=== PATIENT | male | born 1950 | race Caucasian/White ===

== ENCOUNTER → 2019-04-17 14:48 | Outpatient (CLI) | payer OTHER, SELFPAY ==
--- NOTE | 2019-04-17 | DI.RAD.S_ITS ---
PROCEDURE: XR HAND RT MIN 3V INDICATIONS: BILATERAL HAND PAIN TECHNIQUE: 3 views of the hand(s) acquired. COMPARISON: None. FINDINGS: Bones: No fractures or dislocations. Carpal bones are normally aligned. No suspicious bony lesions. Soft tissues: No suspicious soft tissue calcifications. IMPRESSION: Normal for age, source of current and pain symptoms is not seen. Dictated by: Jack Reyes M.D. on 04/17/2019 at 16:06 Approved by: Jack Reyes M.D. on 04/17/2019 at 16:07
--- NOTE | 2019-04-17 | DI.RAD.S_ITS ---
PROCEDURE: XR HAND LT MIN 3V INDICATIONS: BILATERAL HAND PAIN TECHNIQUE: 3 views of the hand(s) acquired. COMPARISON: None. FINDINGS: Bones: No fractures or dislocations. Carpal bones are normally aligned. No suspicious bony lesions. Soft tissues: No suspicious soft tissue calcifications. IMPRESSION: Normal for age except for mild degenerative osteoarthritis, source of current persistent hand pain symptoms is not seen. Dictated by: Jack Reyes M.D. on 04/17/2019 at 16:07 Approved by: Jack Reyes M.D. on 04/17/2019 at 16:08
== END ==
PROVIDERS: PCP Family Medicine; Visit Provider Family Medicine
DX: M79.641 Pain in right hand (principal); M79.642 Pain in left hand; M19.042 Primary osteoarthritis, left hand
CPT/HCPCS: 73130

== ENCOUNTER 2019-08-25 11:52 | Day surgery (SDC) | payer OTHER, SELFPAY ==
[2019-08-25] VITALS (8 sets, daily range): BP systolic 98–113; BP diastolic 67–78; PULSE 53–67; RESP 7–16; TEMP 35.9–36.3; O2SAT 95–98; BMI 25.6
--- NOTE | 2019-08-25 05:51 | P.HP_ITS ---
History of Present Illness History of Present Illness Date Patient Seen: 08/25/19 Time Patient Seen: 12:45 Chief complaint: [id number] Narrative: 69 Years Old Male comes in today consideration of a screening colonoscopy. He has had 2 previous colonoscopies. The first colonoscopy in approximately 1997 revealed colon polyps, records unavailable at time of dictation. Second colonoscopy in 2002 was within normal limits. In the last few weeks, he has had one episode of bright red bleeding per rectum with dripping blood into the stool. He does have hemorrhoids and lactose intolerance and did have accidental dairy ingestion prior to the bleeding. Denies any constipation, diarrhea, change in stool caliber size, anemia, nausea, vomiting, or abdominal pain. There's been no family history of colon cancer or colon polyps. Overall health issues have been stable, including no major cardiac events for at least 6 weeks. Current Medications (verified): 1) Turmeric 450 Mg Oral Capsule (Turmeric) .... use as directed per bottle instructions 2) Vitamin E 400 Unit Oral Capsule (Vitamin E) .... Take one by mouth every day 3) Iron 240 (27 Fe) Mg Oral Tablet (Ferrous Gluconate) .... Take one by mouth every day 4) Vitamin C 1000 Mg Oral Tablet (Ascorbic Acid) .... Take one twice daily. 5) Vitamin D3 1000 Unit Oral Tablet (Cholecalciferol) .... Take one by mouth every day 6) B-12 1000 Mcg Oral Capsule (Cyanocobalamin) .... Take one daily 7) Lactaid 3000 Unit Oral Tablet (Lactase) .... Take one by mouth every day as needed 8) Probiotic Acidophilus Oral Tablet (Lactobacillus) .... Take one by mouth every day 9) Lutein 10 Mg Oral Tablet (Lutein) .... Take one daily 10) Glucosamine Chondroitin Complx 500-250 Mg Oral Capsule (Glucosamine- Chondroitin) .... Take one daily 11) Saw [place] 160 Mg Oral Capsule (Saw [place] (Serenoa Repens)) .... Take one daily. 12) Alpha-Lipoic Acid 100 Mg Oral Capsule (Alpha-Lipoic Acid) .... Take one by mouth every day 13) Ginkoba 40 Mg Oral Tablet (Ginkgo Biloba) .... Take one by mouth every day 14) Melatonin 5 Mg Oral Tablet (Melatonin) .... one tablet every evening to improve sleep Allergies (verified): No Known Drug Allergies 1) * Grass (Moderate) Past History Reviewed: Past medical, surgical, family and social histories (including risk factors) reviewed and attested, and no changes required Past Medical History: Arthritis Asthma Hay fever Sciatica Reflux STD Colon polyp Hyperlipidemia Past Surgical History: Cataract bilateral 01/2017 Lipoma 2004 Vasectomy 1994 Colonoscopy 2002?, reportedly normal Colonoscopy, 1997?, colon polyps Family History: Reviewed history from 03/18/2018 and no changes required: Father: Prostate Cancer Mother: Diabetes Siblings: Family Hx Diabetes Family Hx Prostate Cancer Social History: Reviewed history from 02/18/2017 and no changes required: Marital Status: Children: Ana Simmons 1981 and Artemio Scott 9[birth year] 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 Head: Head normocephalic/atraumatic. Neck: Neck soft and supple, no lymphadenopathy. Lungs: Clear to auscultation bilaterally, no wheezes, rhonchi or rales. Heart: Normal S1 and S2 with regular rate and rhythm, no audible murmurs, rubs or gallops. Abdomen: Soft, non-tender, non-distended, no organomegaly. Positive bowel sounds. Extremities: No clubbing, cyanosis, or edema. Neurologic: Cranial nerves II through XII grossly intact, no focal deficits. Skin: no concerning leisions. Psych: Alert and oriented x 3. Assessment & Plan Assessment & Plan narrative: Problem # 1: Hematochezia (ICD-578.1) (ICD10- K92.1) 1. Colonoscopy The nature and character of the procedure as well as anticipated results were discussed. The possibility of not completing the procedure was also discussed. Possible complications including aspiration pneumonia, bleeding, perforation and reaction to medications either for sedation or preparation and missed lesions were discussed. Questions were answered and proceeding to the colonoscopy was elected. Informed consent signed. I sincerely appreciate the referral allowing me to participate in this patient's care. Please contact me with any questions or concerns. Problem # 2: Colon polyps (ICD-211.3) (ROE12-W33.5) Please see #1. Problem # 3: COLON CANCER SCREENING (ICD-V76.51) (DIH21-O36.11) Please see #1. Time Spent With Patient Time with patient: less than 15 minutes
--- NOTE | 2019-08-25 05:56 | PM.OP.ENDO ---
Operative Date/Time/Diagnoses Date of procedure: 08/25/19 Time of procedure: 13:09 Pre-op diagnosis: 1. Hematochezia 2. History of colon polyps 3. Screening for colon cancer Post-op diagnosis: other (Normal colonoscopy) Procedure & Clinicians Study performed: Colonoscopy Same procedure as scheduled: Yes Indications: 1. Hematochezia 2. History of colon polyps 3. Screening for colon cancer Surgeon: Marilin Magana Procedure Notes SCOAP/Timeout: 13:09 Procedure in detail: ENDOSCOPIST: Marilin Magana MD Sedation RN: Linda Orozco RN Sedation start time: 13:10 Sedation end time: 13:22 PROCEDURE: Colonoscopy INDICATIONS: 1. Hematochezia 2. History of colon polyps 3. Screening for colon cancer MEDICATION: Levsin 0.125 mg sublingual, incremental doses of Versed and fentanyl until appropriate level sedation achieved. ASA CLASS: 2 CECAL WITHDRAWAL TIME: 6 minutes COMPLICATIONS: None. EXTENT OF PROCEDURE: Cecum. QUALITY OF PREP: Good with portions of liquid stool. PROCEDURE: Prior to insertion of the colonoscope, a digital rectal examination was accomplished with circumferential palpation of the distal rectal mucosa without significant findings being noted. The high-definition colonoscope was passed into the rectum in the usual fashion and advanced over to the cecum without difficulty. The ileocecal valve, appendiceal stoma, and medial wall all could be inspected and no abnormalities were seen. ASCENDING COLON: As the colonoscope was withdrawn, care was taken to expose and inspect the haustral folds and no abnormalities were seen. HEPATIC FLEXURE: Normal no polyps, diverticula or other abnormalities. TRANSVERSE COLON: Normal no polyps, diverticula or other abnormalities. DESCENDING COLON: Normal no polyps, diverticula or other abnormalities. SIGMOID COLON: Normal no polyps, diverticula or other abnormalities. RECTUM: Normal. J maneuver was produced. There was no significant perianal disease. The J maneuver was broken. The remainder of the rectum was inspected and there was no external hemorrhoid disease. The scope was withdrawn. IMPRESSION: 1. Normal colonoscopy 2. No endoscopic evidence for hematochezia, suspect likely secondary to lactose intake. PLAN: 1. Secondary to history of colon polyps, repeat colonoscopy in 5-10 years. The possibility of a missed lesion including a malignancy has been discussed with the patient previously. Potential alarm symptoms have been discussed and should be reported immediately. Scope withdrawal time: 6 minutes Sedation minutes: 12 Specimen(s): none sent Complications: none Impression: As above Post-procedure Recommendations: Colonscopy in 5 years Follow up: as needed Disposition: PACU
[2019-08-25] MEDS: SODIUM CHLORIDE 0.9% 1,000 ML 200 ML IV (12:24)
[2019-08-25] MEDS: HYOSCYAMINE 0.125 MG TABLET PO (12:27)
[2019-08-25] MEDS: fentaNYL 250 MCG/5 ML INJ IV (13:32)
[2019-08-25] MEDS: MIDAZOLAM 5 MG/5 ML VIAL IV (13:32)
== END 2019-08-25 15:03 | disposition home or self-care (01) ==
PROVIDERS: Family Provider Family Medicine; PCP Family Medicine; Visit Provider Student in an Organized Health Care Education/Training Program
PROC: 0DJD8ZZ Inspection of Lower Intestinal Tract, Via Natural or Artificial Opening Endoscopic (ICD-10-PCS; CPT 45378; principal; 2019-08-25 13:00)
DX: K92.1 Melena (principal); Z86.010 Personal history of colon polyps; K64.9 Unspecified hemorrhoids; E73.9 Lactose intolerance, unspecified
CPT/HCPCS: 45378; J2250; J3010

== ENCOUNTER → 2022-12-09 17:33 | Outpatient (CLI) | payer OTHER, SELFPAY ==
--- NOTE | 2022-12-09 17:39 | DI.RAD.S_ITS ---
PROCEDURE: XR FOREARM RT 2V INDICATIONS: Forearm injury TECHNIQUE: 2 views of the forearm were acquired. COMPARISON: None. FINDINGS: Bones: No fractures or dislocations. No suspicious bony lesions. Proximal olecranon enthesophyte formation near triceps tendon insertion is seen. Soft tissues: No suspicious soft tissue calcifications or masses. IMPRESSION: No forearm fracture or dislocation. No gross soft tissue abnormality. Dictated by: Harman Vasquez M.D. on 12/10/2022 at 13:39 Approved by: Harman Vasquez M.D. on 12/10/2022 at 13:57
== END ==
PROVIDERS: Family Provider Family Medicine; PCP Family Medicine; Referring Provider Nurse Practitioner Family; Visit Provider Nurse Practitioner Family
DX: S59.911A Unspecified injury of right forearm, initial encounter (principal); X58.XXXA Exposure to other specified factors, initial encounter
CPT/HCPCS: 73090